=== PATIENT | female | born 1990 | race Caucasian/White ===

== ENCOUNTER 2023-03-14 11:06 | Inpatient (IN) | payer OTHER ==
[2023-03-14] MEDS ORDERED: DEXTROSE 5%-LACTATED RINGERS 500 ML IV ONE ×2 (11:30→12:00)
[2023-03-14] MEDS ORDERED: ELECTROLYTE-148 SOLN 1,000 ML IV SCH (14:15)
[2023-03-14] MEDS ORDERED: CITRIC ACID/SODIUM CITRATE 30 ML UNIT-DOSE CUP PO ONE (14:15)
[2023-03-14] MEDS ORDERED: ACETAMINOPHEN 325 MG TABLET (FP) PO PRN (14:53)
[2023-03-14] MEDS ORDERED: morphine SULFATE/PF 1 MG/2 ML (2cc Syringe - QUVA) EP ONE (14:53)
[2023-03-14] MEDS ORDERED: ONDANSETRON 4 MG/2 ML VIAL IVPUSH PRN (14:53)
[2023-03-14] MEDS ORDERED: IBUPROFEN 600 MG TABLET (FP) PO PRN (14:53)
[2023-03-14 15:12] LABS: BASO % 0.7 % (0-2.0); EOS % 0.2 % (0-4.5); HEMATOCRIT 38.5 % (32.4-45.2); HEMOGLOBIN 12.4 GM/dL (10.7-15.3); LYMPH % 16.3 % (8-40); MCH 28.1 pg (25.7-33.7); MCHC 32.3 g/dl (32.0-36.0); MEAN PLT VOLUME 8.8 fl (7.5-11.1); MONO % 6.1 % (3.8-10.2); NEUT % 76.7 % (42.8-82.8); PLATELET COUNT 191 10^3/uL (134-434); RBC 4.43 M/mm3 (3.60-5.2); RDW 15.7 % (11.6-15.6); WHITE BLOOD COUNT 9.4 K/mm3 (4.0-10.0)
[2023-03-14 15:20] LABS: INR 0.98 (0.83-1.09); PROTHROMBIN TIME (PATIENT) 11.4 SEC (9.7-13.0)
[2023-03-14 15:23] LABS: ACTIVATED PTT 25.5 SECONDS (25.2-36.5)
[2023-03-14 15:38] VITALS: BMI 34.7
[2023-03-14 15:55] LABS: POTASSIUM 3.9 mmol/L (3.5-5.1)
[2023-03-14 15:56] LABS: CALCIUM 8.3 mg/dL (8.5-10.1)
[2023-03-14 15:57] LABS: BLOOD UREA NITROGEN 8.7 mg/dL (7-18)
[2023-03-14] MEDS ORDERED: morphine SULFATE/PF 1 MG/2 ML (2cc Syringe - QUVA) ONE (15:58)
[2023-03-14] MEDS ORDERED: SODIUM CHLORIDE 0.9% P/F 10 ML VIAL IJ ONE (15:59)
[2023-03-14] MEDS ORDERED: ceFAZolin SODIUM 1 GM VIAL ONE (15:59)
[2023-03-14 16:00] LABS: CREATININE 0.6 mg/dL (0.55-1.3)
[2023-03-14] MEDS ORDERED: PHENYLEPHRINE HCL 10 MG/1 ML SINGLE DOSE VIAL ONE (16:14)
[2023-03-14] MEDS ORDERED: LIGASURE IMPACT TP ONE (16:21)
[2023-03-14] MEDS ORDERED: OXYTOCIN 10 UNITS/ML VIAL ONE (16:36)
[2023-03-14] MEDS ORDERED: SENNOSIDES/DOCUSATE COMBO (SENNA PLUS) TABLET (UD) PO PRN (17:33)
[2023-03-14] MEDS ORDERED: oxyCODONE HCL 5 MG TABLET PO PRN ×2 (17:33→17:40)
[2023-03-14] MEDS ORDERED: ONDANSETRON 4 MG/2 ML VIAL IVPB PRN (17:33)
[2023-03-14] MEDS ORDERED: OXYTOCIN 20 UNITS in 0.9% NS 20 UNIT/1,000 ML INFUS.BAG IV ONE (17:37)
[2023-03-14] MEDS: OXYTOCIN 20 UNITS in 0.9% NS 20 UNIT/1,000 ML INFUS.BAG IV SCH (17:50)
[2023-03-14] MEDS ORDERED: ACETAMINOPHEN INJECTION 100 ML IVPB ONE (18:22)
[2023-03-14] MEDS: ACETAMINOPHEN 1000 MG/100 ML BAG IVPB SCH (18:25)
[2023-03-14] MEDS: ELECTROLYTE-148 SOLN 1,000 ML IV SCH (18:41)
[2023-03-14] MEDS: IBUPROFEN 800 MG/8 ML IJ IVPB SCH (18:41)
[2023-03-15] MEDS: IBUPROFEN 800 MG/8 ML IJ IVPB SCH ×3 (03:02→17:41)
[2023-03-15] MEDS: OXYTOCIN 20 UNITS in 0.9% NS 20 UNIT/1,000 ML INFUS.BAG IV SCH ×2 (03:09→20:18)
[2023-03-15] MEDS: ACETAMINOPHEN 1000 MG/100 ML BAG IVPB SCH ×3 (03:16→17:41)
[2023-03-15 08:57] LABS: BASO % 0.5 % (0-2.0); EOS % 0.1 % (0-4.5); HEMOGLOBIN 13.4 GM/dL (10.7-15.3); LYMPH % 10.5 % (8-40); MCH 27.8 pg (25.7-33.7); MCHC 31.8 g/dl (32.0-36.0); MEAN CELL VOLUME 87.4 fl (80-96); MEAN PLT VOLUME 8.4 fl (7.5-11.1); MONO % 6.1 % (3.8-10.2); NEUT % 82.8 % (42.8-82.8); PLATELET COUNT 210 10^3/uL (134-434); RBC 4.81 M/mm3 (3.60-5.2); RDW 15.7 % (11.6-15.6); WHITE BLOOD COUNT 13.3 K/mm3 (4.0-10.0)
[2023-03-15] MEDS: PRENATAL VITAMINS W/ FOLIC ACID TABLET (FP) PO SCH (09:55)
[2023-03-15] MEDS: SIMETHICONE 80 MG TAB.CHEW (FP) PO PRN ×3 (09:55→23:41)
[2023-03-15 15:53] VITALS: RESP 18
[2023-03-15] MEDS ORDERED: ACETAMINOPHEN 500 MG TABLET (FP) PO PRN (16:10)
[2023-03-15] MEDS ORDERED: BISACODYL 10 MG SUPP.RECT RC PRN (17:33)
[2023-03-15] MEDS: IBUPROFEN 600 MG TABLET (FP) PO PRN ×2 (17:42→23:41)
[2023-03-15] MEDS: ELECTROLYTE-148 SOLN 1,000 ML IV SCH (20:18)
[2023-03-16] MEDS ORDERED: ACETAMINOPHEN 500 MG TABLET (FP) PO PRN (02:00)
[2023-03-16] MEDS ORDERED: IBUPROFEN 600 MG TABLET (FP) PO PRN (02:00)
[2023-03-16] MEDS: IBUPROFEN 600 MG TABLET (FP) PO PRN ×2 (08:53→21:30)
[2023-03-16] MEDS: SIMETHICONE 80 MG TAB.CHEW (FP) PO PRN ×2 (08:54→21:30)
[2023-03-16] MEDS: PRENATAL VITAMINS W/ FOLIC ACID TABLET (FP) PO SCH (10:31)
[2023-03-17] MEDS: PRENATAL VITAMINS W/ FOLIC ACID TABLET (FP) PO SCH (09:56)
[2023-03-17 10:01] VITALS: BP 105/69; PULSE 80; TEMP 99
== END 2023-03-17 13:35 | disposition home or self-care (01) | DRG 540 ==
LOC: JDEL 11:06 → JLDR 14:10 → J3W 20:27
PROVIDERS: ADMIT Specialist; ATTEND Specialist
PROC: 10D00Z1 Extraction of Products of Conception, Low, Open Approach (ICD-10-PCS; principal; 2023-03-14)
PROC: 0UT70ZZ Resection of Bilateral Fallopian Tubes, Open Approach (ICD-10-PCS; 2023-03-14)
DX: O34.211 Maternal care for low transverse scar from previous cesarean delivery (principal); Z30.2 Encounter for sterilization; Z3A.38 38 weeks gestation of pregnancy; Z37.0 Single live birth
CPT/HCPCS: 36415; 80048; 85025; 85610; 85730; 86780; 86850; 86900; 86901; 88302-TC; 88304-TC; 88307-TC; 94010